=== PATIENT | female | born 1990 | race Caucasian/White ===

== ENCOUNTER 2018-12-01 18:53 | Emergency (ER) | payer OTHER ==
[2018-12-01 19:08] VITALS: BP 105/72
--- NOTE | 2018-12-01 19:47 | UC ---
Ear Complaint HPI - HPI Summary HPI Summary: 28-year-old female presents with complaints of 2 week history of left ear fullness and diminished hearing. Over the last 4 days she has had some worsening of symptoms and started developing some pain in the ear. States she has history of frequent ear infections noting that she has been treated 3 or 4 times in the past year. She has also noted some moderate nasal congestion over the past couple of weeks. Denies fever, chills, ear drainage, tinnitus, vertigo , sore throat, or cough. - History of Current Complaint Chief Complaint: UCEar Stated Complaint: EAR ACHE Time Seen by Provider: 12/01/18 19:16 Hx Obtained From: Patient Hx Last Menstrual Period: November 12, 2018 Pain Intensity: 4 - Allergies/Home Medications Allergies/Adverse Reactions: Allergies Allergy/AdvReac Type Severity Reaction Status Date / Time No Known Allergies Allergy Verified 12/01/18 19:04 Home Medications: Home Medications Ibuprofen 600 mg PO Q8HR PRN 12/01/18 [History Confirmed 12/01/18] PMH/Surg Hx/FS Hx/Imm Hx Previously Healthy: Yes - Denies significant PMH - Surgical History Surgical History: Yes Surgery Procedure, Year, and Place: Lasic eye surgery 2017 - Family History Known Family History: Positive: Non-Contributory - Social History Occupation: Employed Full-time Lives: Alone Alcohol Use: None Substance Use Type: None Smoking Status (MU): Never Smoked Tobacco Review of Systems All Other Systems Reviewed And Are Negative: Yes Constitutional: Negative: Fever, Chills Eyes: Negative: Drainage, Eye Redness ENT: Positive: Ear Ache, Nasal Discharge, Sinus Congestion. Negative: Epistaxis , Sore Throat, Sinus Pain/Tenderness Respiratory: Negative: Shortness Of Breath, Cough Cardiovascular: Positive: Negative Gastrointestinal: Positive: Negative Genitourinary: Positive: Negative Musculoskeletal: Positive: Negative Neurological: Positive: Negative Is Patient Immunocompromised?: No Physical Exam - Summary Physical Exam Summary: GENERAL APPEARANCE: Well developed, well nourished, alert and cooperative, and appears to be in no acute distress. EYES: Conjunctiva clear. No drainage. EARS: Right external auditory canal with moderate amount of cerumen. TM opaque with good cone of light. Left external auditory canal with cerumen impaction. NOSE: Mild-moderate nasal congestion. THROAT: Pharynx normal. No tonsilar inflammation, swelling, exudate, or lesions. Uvula midline. Oral cavity normal. Teeth and gingiva in good general condition. NECK: Neck supple, non-tender without lymphadenopathy. CARDIAC: Normal S1 and S2. No S3, S4 or murmurs. Rhythm is regular. There is no peripheral edema, cyanosis or pallor. Extremities are warm and well perfused. Capillary refill is less than 2 seconds. Peripheral pulses intact. LUNGS: Clear to auscultation without rales, rhonchi, wheezing or diminished breath sounds. ABDOMEN: Positive bowel sounds. Soft, nondistended, nontender. No guarding or rebound. No masses or hepatosplenomegally. MUSKULOSKELETAL: ROM intact to all extremities. No joint erythema or tenderness. Normal muscular development. Normal gait. SKIN: Skin normal color, texture and turgor with no lesions or eruptions. Triage Information Reviewed: Yes Vital Signs: Initial Vital Signs Temp 99.5 F 12/01/18 19:05 Pulse 79 12/01/18 19:05 Resp 18 12/01/18 19:05 BP 105/72 12/01/18 19:05 Pulse Ox 100 12/01/18 19:05 Vital Signs Reviewed: Yes Re-Evaluation - Re-Evaluation First Eval Re-Evaluation Time: 20:15 Change: Improved Comment: Post-irrigation patient is reporting improvement in hearing and pain. Exam shows a clear left external auditory canal with mild erythema. TM opaque with good cone of light. Ear Complaint Course/Dx - Course Course Of Treatment: 28-year-old female presents with complaints of 2 week history of left ear fullness and diminished hearing. Over the last 4 days she has had some worsening of symptoms and started developing some pain in the ear. States she has history of frequent ear infections noting that she has been treated 3 or 4 times in the past year. She has also noted some moderate nasal congestion over the past couple of weeks. Denies fever, chills, ear drainage, tinnitus, vertigo , sore throat, or cough. Afebrile. Vital signs stable. Patient had mild- moderate nasal congestion, right external auditory canal with moderate amount of cerumen, TM opaque with good cone of light, left external auditory canal with cerumen impaction and otherwise unremarkable exam. The left ear was irrigated by the RN in the cerumen impaction was cleared. Patient reported improvement in hearing and pain. Post irrigation exam revealed intact, opaque TM with good cone of light. Discussed with patient that some of her symptoms may be related to some eustachian tube dysfunction and I am recommending that she start on fluticasone nasal spray 2 sprays each nostril once daily. She is to follow-up with her primary care provider in 3-5 days if symptoms are not improving. Respiratory guidance and warning symptoms were reviewed with the patient. Verbalizes understanding and agrees with plan of care. - Differential Dx/Diagnosis Differential Diagnosis/HQI/PQRI: Cerumen Impaction, Otitis Externa, Otitis Media Provider Diagnosis: Left ear impacted cerumen, Acute dysfunction of left eustachian tube Discharge - Sign-Out/Discharge Documenting (check all that apply): Patient Departure All imaging exams completed and their final reports reviewed: No Studies - Discharge Plan Condition: Stable Disposition: HOME Prescriptions: Fluticasone NASAL SPRAY 50MCG* [Flonase NASAL SPRAY 50MCG*] 2 spray BOTH NARES DAILY #1 btl Patient Education Materials: Cerumen Impaction (ED), Serous Otitis Media (ED) Referrals: No Primary Care Phys,NOPCP [Primary Care Provider] - Additional Instructions: Your exam showed a impaction of ear wax in the left ear canal which we successfully irrigated out. There was no evidence of an ear infection on your exam however I suspect that your symptoms may be a condition called serous otitis caused by eustachian tube dysfunction. Start using fluticasone nasal spray 2 sprays each nostril once daily. Use acetaminophen (Tylenol) or ibuprofen (Advil, Motrin) according to directions as needed for pain. Follow-up with your primary care provider in 3-5 days if symptoms are not improving. Seek immediate medical attention in the emergency room if you develop fever greater than 100.5 F, have severe pain that is not managed with pain medication , you have blood or drainage from the ear, hearing loss, or any worsening of symptoms. - Billing Disposition and Condition Condition: STABLE Disposition: Home
== END 2018-12-01 20:23 | disposition home or self-care (01) ==
LOC: UCEAST 18:53
DX: H61.22 Impacted cerumen, left ear (principal); H69.82 Other specified disorders of Eustachian tube, left ear
CPT/HCPCS: 99203; G0463

== ENCOUNTER 2019-09-12 11:19 | Emergency (ER) | payer OTHER ==
[2019-09-12 15:42] VITALS: BP 121/69
--- NOTE | 2019-09-12 15:57 | ED ---
Throat Pain/Nasal Congestion - HPI Summary HPI Summary: 29 yo WF p/w sore throat, cough diarrhea x 3 days denies bodyaches n/v - History of Current Complaint Chief Complaint: UCRespiratory Time Seen by Provider: 09/12/19 15:40 Hx Obtained From: Patient Onset/Duration: Sudden Onset Severity: Moderate Associated Signs And Symptoms: Positive: Negative Cough: Nonproductive - Epiglottits Risk Factors Epiglottis Risk Factors: Negative - Allergies/Home Medications Allergies/Adverse Reactions: Allergies Allergy/AdvReac Type Severity Reaction Status Date / Time No Known Allergies Allergy Verified 12/01/18 19:04 Home Medications: Home Medications Fluticasone NASAL SPRAY 50MCG* [Flonase NASAL SPRAY 50MCG*] 2 spray BOTH NARES DAILY #1 btl 12/01/18 [Rx] Ibuprofen 600 mg PO Q8HR PRN 12/01/18 [History Confirmed 12/01/18] PMH/Surg Hx/FS Hx/Imm Hx Previously Healthy: Yes Endocrine/Hematology History: Denies: Hx Diabetes Cardiovascular History: Denies: Hx Hypertension Respiratory History: Denies: Hx Chronic Obstructive Pulmonary Disease (COPD) - Surgical History Surgery Procedure, Year, and Place: [facility] eye surgery 2017 Infectious Disease History: No Infectious Disease History: Denies: Traveled Outside the [place] in Last 30 Days - Family History Known Family History: Positive: Non-Contributory - Social History Alcohol Use: None Substance Use Type: Reports: None Smoking Status (MU): Never Smoked Tobacco Review of Systems Constitutional: Negative Eyes: Negative Positive: Sore Throat Cardiovascular: Negative Positive: Cough Gastrointestinal: Negative Genitourinary: Negative Musculoskeletal: Negative Skin: Negative Neurological/Mental Status: Negative Positive: Headache Psychological: Normal All Other Systems Reviewed And Are Negative: Yes Physical Exam - Summary Physical Exam Summary: Gen: NAD Eye Exam: Normal Eyes: Positive: Conjunctiva Clear ENT: mild pharyngeal erythema Neck: Supple Respiratory: Lungs clear, Normal breath sounds. Negative: Crackles, Rhonchi, Stridor, Wheezing Cardiovascular Exam: Normal, RRR, S1, S2 Abdomen: NT/ND Musculoskeletal Exam: Normal Neurological Exam: Normal Psychological Exam: Normal Skin Exam: Normal Vital Signs On Initial Exam: Initial Vitals Temp Pulse Resp BP Pulse Ox 37.3 C 60 18 121/69 98 09/12/19 15:34 09/12/19 15:34 09/12/19 15:34 09/12/19 15:34 09/12/19 15:34 Diagnostics - Vital Signs Vital Signs Temp Pulse Resp BP Pulse Ox 09/12/19 15:34 37.3 C 60 18 121/69 98 - Laboratory Lab Statement: Any lab studies that have been ordered have been reviewed, and results considered in the medical decision making process. EENT Course/Dx - Course Assessment/Plan: CXR - NAPD - Diagnoses Provider Diagnoses: Pharyngitis Discharge ED - Sign-Out/Discharge Documenting (check all that apply): Patient Departure All imaging exams completed and their final reports reviewed: Yes - Discharge Plan Condition: Stable Disposition: HOME Patient Education Materials: Pharyngitis (ED) - Billing Disposition and Condition Condition: STABLE Disposition: Home
[2019-09-12 16:03] LABS: Influenza A Molecular Negative (Negative); Influenza B Molecular Negative (Negative)
== END 2019-09-12 17:34 | disposition home or self-care (01) ==
LOC: UCEAST 11:19
DX: J02.9 Acute pharyngitis, unspecified (principal); R19.7 Diarrhea, unspecified
CPT/HCPCS: 71046; 87651; 99201; G0463

== ENCOUNTER 2023-02-05 18:03 | Inpatient (IN) ==
[2023-02-05] MEDS ORDERED: Dinoprostone 10 MG VAG.SUPP VAGINAL ONE (19:38)
[2023-02-05] MEDS ORDERED: Buffered Lidocaine 1% SYRIN 1 ml INTRADERM ONE (19:38)
[2023-02-05] MEDS ORDERED: Lactated Ringers 1000 ml BAG 1,000 ML IV ONE (19:38)
[2023-02-05] MEDS ORDERED: Promethazine INJ(RESTRICTED) 25 MG/ML 1 ml VIAL IV PRN (19:38)
[2023-02-05] MEDS ORDERED: Nalbuphine 10 MG/ML 1 ML VIAL IV PRN (19:38)
[2023-02-05] MEDS ORDERED: Lactated Ringers 1000 ml BAG 1,000 ML IV SCH (20:00)
[2023-02-05 20:39] LABS: Urine Benzodiazepine Screen None Detected (None Detect); Urine Cannabinoids Screen None Detected (None Detect); Urine Opiates Screen None Detected (None Detect)
[2023-02-05 20:58] LABS: ABS Basophils 0.1 10^3/uL (0.0-0.1); ABS Eosinophils 0.1 10^3/uL (0.0-0.5); ABS Lymphocytes 2.2 10^3/uL (1.0-4.8); ABS Monocytes 0.8 10^3/uL (0.0-0.9); ABS Neutrophils 8.6 10^3/uL (1.5-7.6); ABS Nucleated RBC 0.01 10^3/ul; Eosinophil % 1.2 %; Hematocrit 34.1 % (35-45); Hemoglobin 11.8 g/dL (11.5-14.3); Lymphocyte % 18.9 %; Mean Corpuscular Hemoglobin 30.2 pg (27-33); Mean Corpuscular Hgb Conc 34.6 g/dL (31-36); Mean Corpuscular Volume 87.3 fL (80-97); Mean Platelet Volume 9.3 fL (7.5-11.2); Nucleated Red Blood Cells % 0.1 /100 WBC (0.0-0.4); Platelet Count 269 10^3/uL (150-450); Red Blood Count 3.91 10^6/uL (3.63-4.92); Red Cell Distribution Width 15.2 % (12-17); White Blood Count 11.9 10^3/uL (3.8-11.8)
[2023-02-05] MEDS ORDERED: Dextrose 50% Syringe 50 ml 25 GM/50 ML SYRINGE IV PUSH PRN (22:59)
[2023-02-05] MEDS: Insulin NPH 100 units/ml SUBCUT SCH (23:36)
[2023-02-06] MEDS ORDERED: OBEPIDURAL (200 ML) 200 ML EPIDURAL ONE (09:55)
[2023-02-06] MEDS ORDERED: Lidocaine 1% w EPI 1:200,000 SDV 30 ML VIAL ONE (09:55)
[2023-02-06] MEDS ORDERED: Lidocaine 2% w/ EPI 1:200,000 MPF 20 ML SDV VIAL ONE (09:56)
[2023-02-06] MEDS ORDERED: Sodium Citrate/Citric Acid LIQ 15 ML UDC PO PRN (10:44)
[2023-02-06] MEDS ORDERED: Phenylephrine 40 mcg/mL 10mL (400mcg) SYRINGE IV PUSH PRN ×2 (10:44)
[2023-02-06] MEDS ORDERED: Lactated Ringers 1000 ml BAG 1,000 ML IV ONE (10:44)
[2023-02-06] MEDS ORDERED: Oxytocin in LR 20,000 MILLI.UNIT/1,000 ML BAG IV SCH ×2 (11:00→16:25)
[2023-02-06] MEDS ORDERED: Lactated Ringers 1000 ml BAG 1,000 ML IV SCH ×2 (11:00→17:00)
[2023-02-06] MEDS ORDERED: OBEPIDURAL (200 ML) 200 ML EPIDURAL SCH (11:00)
[2023-02-06 12:13] LABS: Urine Appearance Clear; Urine Bilirubin Negative (Negative); Urine Blood 1+ (Negative); Urine Color Yellow; Urine Glucose Negative (Negative); Urine Ketones Negative (Negative); Urine Nitrite Negative (Negative); Urine Protein 2+(100 mg/dL) (Negative); Urine Specific Gravity 1.016 (1.002-1.030); Urine Urobilinogen Negative (Negative)
[2023-02-06 12:39] LABS: Urine Bacteria Absent (Absent); Urine Red Blood Cell 2+(6-10/hpf) (Absent); Urine Squamous Epithelial Cell Present (Absent); Urine White Blood Cell Trace(0-5/hpf) (Absent)
[2023-02-06] MEDS ORDERED: Dibucaine 1% OINT 28.35 GM TUBE PR PRN (16:21)
[2023-02-06] MEDS ORDERED: Glycerin ADULT 2.4 gm SUPP PR PRN (16:21)
[2023-02-06] MEDS ORDERED: Witch Hazel PAD JAR TOPICAL PRN (16:21)
[2023-02-06] MEDS ORDERED: RHO D Immune Globulin (HUMAN) 300 MCG = 1,500 I.U. INJ IM ONE (16:22)
[2023-02-07 07:03] LABS: ABS Basophils 0.1 10^3/uL (0.0-0.1); ABS Eosinophils 0.1 10^3/uL (0.0-0.5); ABS Lymphocytes 1.9 10^3/uL (1.0-4.8); ABS Monocytes 0.9 10^3/uL (0.0-0.9); ABS Neutrophils 10.9 10^3/uL (1.5-7.6); ABS Nucleated RBC 0.01 10^3/ul; Eosinophil % 0.8 %; Hematocrit 34.3 % (35-45); Hemoglobin 11.8 g/dL (11.5-14.3); Lymphocyte % 13.6 %; Mean Corpuscular Hgb Conc 34.3 g/dL (31-36); Mean Corpuscular Volume 87.3 fL (80-97); Mean Platelet Volume 8.5 fL (7.5-11.2); Platelet Count 247 10^3/uL (150-450); Red Blood Count 3.93 10^6/uL (3.63-4.92); Red Cell Distribution Width 14.9 % (12-17); White Blood Count 13.9 10^3/uL (3.8-11.8)
[2023-02-07] MEDS: Insulin NPH 100 units/ml SUBCUT SCH (16:17)
[2023-02-07 20:42] VITALS: BP 123/82
== END 2023-02-08 16:35 | disposition home or self-care (01) | DRG 807 ==
LOC: MCHOBOUT 18:03 → MCHOB 19:37
PROVIDERS: ADMIT Obstetrics & Gynecology; ATTEND Obstetrics & Gynecology